=== PATIENT | male | born 1985 | race Caucasian/White ===

== ENCOUNTER 2021-12-11 15:39 | Emergency (ER) | payer MEDICAID ==
[~2021-12-11] VITALS: Ht 172.7 cm; Wt 83.9 kg
[2021-12-11 15:40] VITALS: BP_SYST 143
--- NOTE | 2021-12-11 15:40 | NUR ---
Placed in room 6 . Placed on personal fitness trainer, blood pressure machine and pulse oximeter. To gown for exam. Side rails up. Report given to OSVALDO GOMEZ.
--- NOTE | 2021-12-11 15:45 | NUR ---
PT BIBA, AWAKE AND ALERT AOX4. NO SOB OR DISTRESS. PT DENIES PAIN. PT BROUGHT IN FROM [facility] BECAUSE PT DRANK 1 BOTTLE OF HAND SANITAIZER AT THE FACILITY. PT SELF ADMITTED HIMSELF TO GREEN, DUE TO SI. PT HAS A SITTER WITH HIM AT BEDSIDE. MD DR BOLAÑOS MADE AWARE AND CONTACTED POISON CONTROL.
--- NOTE | 2021-12-11 15:50 | NUR ---
ER DR. BOLAÑOS ON THE PHONE WITH POISON CONTROL
--- NOTE | 2021-12-11 15:56 | NUR ---
MD DR BOLAÑOS AT BEDSIDE
[2021-12-11 16:05] LABS: HEMOGLOBIN 14.4 g/dL (14.0-18.0)
[2021-12-11 16:10] LABS: BASOPHILS # (AUTO) 0.1 K/uL (0.0-0.2); BASOPHILS % (AUTO) 0.8 % (0.0-2.0); EOSINOPHILS # (AUTO) 0.2 K/uL (0.0-0.4); EOSINOPHILS % (AUTO) 1.7 % (0.0-4.0); HEMATOCRIT 40.6 % (36-54); LYMPHOCYTES # (AUTO) 1.9 K/uL (1.0-5.5); LYMPHOCYTES % (AUTO) 20.6 % (20.5-51.5); MEAN CORPUSCULAR HEMOGLOBIN 32 pg (27-31); MEAN CORPUSCULAR HGB CONC 35 % (32-36); MEAN CORPUSCULAR VOLUME 91 fL (79.0-98.0); MONOCYTES # (AUTO) 0.9 K/uL (0.0-1.0); MONOCYTES % (AUTO) 10.3 % (1.7-9.3); NEUTROPHILS % (AUTO) 66.6 % (40.0-70.0); PLATELET COUNT (AUTO) 289 K/uL (130-430); RED BLOOD CELL COUNT(AUTO) 4.49 MIL/uL (4.2-6.2); RED CELL DISTRIBUTION WIDTH 12.9 % (9.0-15.0)
[2021-12-11 16:13] LABS: ANION GAP 7 (5-15); CALCIUM 8.5 mg/dL (8.4-11.0); CHLORIDE 108 mmol/L (98-107); CREATININE 1.38 mg/dL (0.55-1.30); GLUCOSE 78 mg/dL (70-99); POTASSIUM 3.6 mmol/L (3.5-5.1); UREA NITROGEN, BLOOD 11 mg/dL (8-21)
[2021-12-11 16:19] LABS: ALANINE AMINOTRANSFERASE 25 U/L (12-78); ALBUMIN 3.8 g/dL (3.4-4.8); ALCOHOL, BLOOD 53 mg/dL (<10); ASPARTATE AMINOTRANSFERASE 20 U/L (10-37); TOTAL BILIRUBIN 0.1 mg/dL (0.0-1.0)
[2021-12-11 16:21] LABS: ACETAMINOPHEN < 1 ug/mL (1-30); GFR AFRICAN AMERICAN 76 mL/min (>90)
[2021-12-11 17:12] LABS: BARBITURATE, URINE NEGATIVE (NEG <=200); BENZODIAZEPINE, URINE NEGATIVE (NEG <=150); CANNABINOID, URINE POSITIVE (NEG <=50); COCAINE, URINE NEGATIVE (NEG <=150); METHAMPHETAMINES SCREEN,URINE NEGATIVE (NEG <=500); OPIATE, URINE NEGATIVE (NEG <=100); PHENCYCLIDINE SCREEN,URINE NEGATIVE (NEG <=25); UR TRICYCLIC ANTIDEPRESSANTS NEGATIVE (NEG <=300); URINE AMPHETAMINE POSITIVE (NEG <=500); URINE METHADONE NEGATIVE (NEG <=200); URINE OXYCODONE SCREEN NEGATIVE (NEG <=100); URINE PROPOXYPHENE SCREEN NEGATIVE (NEG <=300)
--- NOTE | 2021-12-11 17:29 | NUR ---
COVID SWAB OBTAINED AND SENT TO LAB.
[2021-12-11 18:54] LABS: ACETONE, SERUM NEGATIVE (NEGATIVE)
[2021-12-11 18:55] LABS: ANION GAP 8 (5-15); CALCIUM 8.4 mg/dL (8.4-11.0); CHLORIDE 107 mmol/L (98-107); GLUCOSE 93 mg/dL (70-99); POTASSIUM 3.7 mmol/L (3.5-5.1); UREA NITROGEN, BLOOD 12 mg/dL (8-21)
[2021-12-11 19:01] LABS: ALANINE AMINOTRANSFERASE 21 U/L (12-78); ALBUMIN 3.5 g/dL (3.4-4.8); ASPARTATE AMINOTRANSFERASE 20 U/L (10-37); TOTAL BILIRUBIN < 0.1 mg/dL (0.0-1.0)
--- NOTE | 2021-12-11 20:20 | NUR ---
REPORT GIVEN TO CARMINA RILEY. PT STABLE, VSS
[2021-12-11 20:45] VITALS: BP_SYST 143
--- NOTE | 2021-12-11 20:45 | NUR ---
Patient given written and verbal discharge instructions and verbalizes understanding. ER MD discussed with patient the results and treatment provided. Patient in stable condition. ID arm band removed. Patient educated on pain management and to follow up with PMD. Pain Scale 0/10. Opportunity for questions provided and answered. Patient A/Ox4, VSS, ambulatory, resp even and unlabored. Patient in stable condition upon discharge and accompanied by Mary Lozano caregiver.
== END 2021-12-11 20:45 | disposition home or self-care (01) ==
LOC: SED 15:39
DX: T18.9XXA Foreign body of alimentary tract, part unspecified, initial encounter (principal); Z79.899 Other long term (current) drug therapy; Z20.822 Contact with and (suspected) exposure to COVID-19; W45.8XXA Other foreign body or object entering through skin, initial encounter; Y93.89 Activity, other specified; Y92.89 Other specified places as the place of occurrence of the external cause; Y99.8 Other external cause status
CPT/HCPCS: 99283; 87426; 80307; 82009; 82550; 85025; 36415; 83605; 80053; G0482; G0480; G0481